=== PATIENT | female | born 1980 | race American Indian/Alaskan Native ===

== ENCOUNTER 2019-11-13 08:23 | Observation (INO) | payer OTHER ==
[2019-11-13] MEDS ORDERED: ASPIRIN 325 MG TAB PO ONE (08:33)
[2019-11-13] MEDS ORDERED: ONDANSETRON 4 MG ODT TAB ONE (08:39)
[2019-11-13] MEDS ORDERED: FAMOTIDINE 20 MG/2 ML INJ IV ONE (09:27)
[2019-11-13] MEDS ORDERED: ONDANSETRON 4 MG/2 ML INJ IV ONE (09:27)
[2019-11-13] MEDS ORDERED: fentaNYL 100 MCG/2 ML INJ IV ONE ×4 (09:27→19:38)
[2019-11-13] MEDS ORDERED: NITROGLYCERIN 2% OINT 1 GM TP ONE (09:27)
--- NOTE | 2019-11-13 09:32 | Emergency Department Report ---
HPI - General Chief Complaint: Chest Pain Time Seen by Provider: 11/13/19 09:22 - HPI HPI: Room 7 The patient is a 39-year-old female present with a chief complaint of chest pain. The patient states she developed substernal chest pain at 03: 00 this mo rning described as aching in nature. Patient states the pain is been constant and associated with nausea/vomiting, shortness of breath and diaphoresis. The patient states her last stress test occurred 2 years ago and was normal. The patient states she is never had a cardiac catheterization. Patient gives her pain a score of 10/10 ED Past Medical Hx - Past Medical History Previous Medical History?: No - Surgical History Past Surgical History?: No - Family History Family history: no significant - Social History Smoking Status: Never Smoker Substance Use Type: None (Denies illicit drug use), Alcohol (Occasional) ED Review of Systems ROS: Stated complaint: CHEST PAIN Other details as noted in HPI Constitutional: diaphoresis Respiratory: shortness of breath Cardiovascular: chest pain Gastrointestinal: nausea, vomiting Physical Exam - Physical Exam Vital Signs: Vital Signs 11/13/19 08:25 Temperature 98.3 F Pulse Rate 67 Respiratory 20 Rate Blood Pressure 140/117 O2 Sat by Pulse 100 Oximetry Physical Exam: GENERAL: The patient is well-developed well-nourished female sitting on stretcher appearing to be in moderate discomfort. [] HEENT: Normocephalic. Atraumatic. Extraocular motions are intact. Patient has moist mucous membranes. NECK: Supple. Trachea midline CHEST/LUNGS: Clear to auscultation. There is no respiratory distress noted. HEART/CARDIOVASCULAR: Regular. There is no tachycardia. There is no gallop rub or murmur. 2+ radial pulses bilaterally ABDOMEN: Abdomen is soft, nontender. Patient has normal bowel sounds. There is no abdominal distention. SKIN: There is no rash. There is no edema. There is no diaphoresis. NEURO: The patient is awake, alert, and oriented. The patient is cooperative. The patient has normal speech MUSCULOSKELETAL: There is no evidence of acute injury. ED Course Vital Signs 11/13/19 08:25 Temperature 98.3 F Pulse Rate 67 Respiratory 20 Rate Blood Pressure 140/117 O2 Sat by Pulse 100 Oximetry - Reevaluation(s) Reevaluation #1: 11/13/19 11:12 Patient feeling improved ED Medical Decision Making - Lab Data Result diagrams: 11/13/19 08:59 11/13/19 08:59 Laboratory Tests 11/13/19 11/13/19 11/13/19 08:59 08:59 08:59 WBC 7.2 RBC 4.64 Hgb 11.9 Hct 37.2 MCV 80 MCH 26 L MCHC 32 RDW 17.6 H Plt Count 373 Lymph % (Auto) 26.7 [place] % (Auto) 3.1 Eos % (Auto) 0.2 Baso % (Auto) 1.1 Lymph # 1.9 [place] # 0.2 Eos # 0.0 Baso # 0.1 Seg Neutrophils % 68.9 Seg Neutrophils # 5.0 Sodium 138 Potassium 3.9 Chloride 103.1 Carbon Dioxide 20 L Anion Gap 19 BUN 8 Creatinine 0.8 Estimated GFR > 60 BUN/Creatinine Ratio 10 Glucose 145 H Calcium 9.7 Troponin T < 0.010 HCG, Qual Negative - EKG Data -: EKG Interpreted by Me EKG shows normal: sinus rhythm Rate: normal (62 bpm) - EKG Data When compared to previous EKG there are: previous EKG unavailable Interpretation: nonspecific ST-T wave yvon (T wave inversions in leads V2, V3) - Radiology Data Radiology results: report reviewed (Chest x-ray), image reviewed (Chest x-ray) interpreted by me: Chest x-ray-no focal infiltrates, no pneumothorax Findings [facility] [address] [place] [address] XRay Report Signed Patient: ISAEL HERNANDEZ MR#: [id number] : 1980 Acct:[id number] Age/Sex: 39 / F ADM Date: 11/13/19 Loc: ED Attending Dr: Ordering Physician: IRAIS HAYS MD Date of Service: 11/13/19 Procedure(s): XR chest 1V ap Accession Number(s): [id number] cc: IRAIS HAYS MD Fluoro Time In Minutes: CHEST 1 VIEW INDICATION: Chest Pain. COMPARISON: None FINDINGS: Support devices: None. Heart: Within normal limits. Lungs/Pleura: No acute air space or interstitial disease. Additional findings: None. IMPRESSION: Normal AP chest Signer Name: Ángel Babin Jr, MD Signed: 11/13/2019 10:42 AM Workstation Name: [id number] Transcribed By: TTR Dictated By: ÁNGEL BABIN JR, MD Electronically Authenticated By: ÁNGEL BABIN JR, MD Signed Date/Time: 11/13/19 104 DD/ 1041 TD/TT: - Differential Diagnosis ACS, pericarditis, GERD Critical care attestation.: If time is entered above; I have spent that time in minutes in the direct care of this critically ill patient, excluding procedure time. ED Disposition Clinical Impression: Chest pain Disposition: OP ADMIT IP TO THIS HOSP Is pt being admited?: Yes Does the pt Need Aspirin: Yes Condition: Fair Instructions: Chest Pain (ED) Referrals: PRIMARY CARE,MD [Primary Care Provider] - 3-5 Days Time of Disposition: 11:11 (Hospitalist paged) MICAH score - Micah Score Age > 65: (0) No Aspirin use within the Past 7 Days: (0) No 3 or more CAD Risk Factors: (0) No 2 or more Angina events in past 24 hrs: (0) No Known CAD with more than 50% Stenosis: (0) No Elevated Cardiac Markers: (0) No ST Deviation Greater than 0.5mm: (0) No MICAH Score: 0
[2019-11-13] MEDS ORDERED: MORPHINE 4 MG/1 ML INJ IV ONE ×2 (09:52→09:53)
[2019-11-13 09:54] LABS: Basophils # (Auto) 0.1 K/mm3 (0.0-0.1); Basophils % (Auto) 1.1 % (0.0-1.8); Eosinophils % (Auto) 0.2 % (0.0-4.3); Hematocrit 37.2 % (30.3-42.9); Hemoglobin 11.9 gm/dl (10.1-14.3); Lymphocytes # (Auto) 1.9 K/mm3 (1.2-5.4); Lymphocytes % (Auto) 26.7 % (13.4-35.0); Mean Corpuscular HGB Conc 32 % (30-34); Mean Corpuscular Volume 80 fl (79-97); Monocytes # (Auto) 0.2 K/mm3 (0.0-0.8); Monocytes % (Auto) 3.1 % (0.0-7.3); Platelet Count 373 K/mm3 (140-440); Red Blood Count 4.64 M/mm3 (3.65-5.03); Red Cell Distribution Width 17.6 % (13.2-15.2)
[2019-11-13 10:15] LABS: BUN/Creatinine Ratio 10; Blood Urea Nitrogen 8 mg/dL (7-17); Calcium 9.7 mg/dL (8.4-10.2); Hemolysis Index 10
--- NOTE | 2019-11-13 10:46 | XRay Report ---
CHEST 1 VIEW INDICATION: Chest Pain. COMPARISON: None FINDINGS: Support devices: None. Heart: Within normal limits. Lungs/Pleura: No acute air space or interstitial disease. Additional findings: None. IMPRESSION: Normal AP chest Signer Name: Ángel Milan Jr, MD Signed: 11/13/2019 10:42 AM Workstation Name: [id number]
[2019-11-13 11:16] LABS: INR 1.16 (0.87-1.13)
[2019-11-13 11:17] LABS: Creatine Kinase MB 1.5 ng/mL (0.0-4.0)
[2019-11-13] MEDS ORDERED: fentaNYL 100 MCG/2 ML INJ ONE ×3 (12:50→19:46)
[2019-11-13] MEDS ORDERED: ACETAMINOPHEN 325 MG TAB PO PRN (13:17)
[2019-11-13] MEDS ORDERED: ONDANSETRON 4 MG/2 ML INJ IV PRN (13:17)
--- NOTE | 2019-11-13 13:17 | History and Physical Report ---
History of Present Illness Date of examination: 11/13/19 Date of admission: 11/13/19 11:42 Chief complaint: cp History of present illness: The patient is a 39-year-old female present with a chief complaint of chest pain. The patient states she developed substernal chest pain at 03: 00 this morning described as aching in nature. Patient states the pain is been constant and associated with nausea/vomiting, shortness of breath and diaphoresis. The patient states her last stress test occurred 2 years ago and was normal. The patient states she is never had a cardiac catheterization. Patient gives her pain a score of 10/10 Past History Past Medical History: No medical history Past Surgical History: No surgical history Social history: no significant social history Family history: no significant family history Medications and Allergies Allergies Allergy/AdvReac Type Severity Reaction Status Date / Time No Known Allergies Allergy Unverified 11/13/19 08:25 Review of Systems All systems: negative Exam - Constitutional Vitals: Temp Pulse Resp BP Pulse Ox 98.3 F 70 19 137/80 96 11/13/19 08:25 11/13/19 13:00 11/13/19 13:00 11/13/19 13:00 11/13/19 13:00 General appearance: Present: no acute distress, well-nourished - EENT Eyes: Present: PERRL ENT: hearing intact, clear oral mucosa - Neck Neck: Present: supple, normal ROM - Respiratory Respiratory effort: normal Respiratory: bilateral: CTA - Cardiovascular Heart Sounds: Present: S1 & S2. Absent: rub, click - Extremities Extremities: pulses symmetrical, No edema Peripheral Pulses: within normal limits - Abdominal General gastrointestinal: Present: soft, non-tender, non-distended, normal bowel sounds Female genitourinary: Present: normal - Integumentary Integumentary: Present: clear, warm, dry - Musculoskeletal Musculoskeletal: gait normal, strength equal bilaterally - Psychiatric Psychiatric: appropriate mood/affect, intact judgment & insight - Neurologic Neurologic: CNII-XII intact, moves all extremities HEART Score - HEART Score Troponin: Troponin T < 0.010 ng/mL (0.00-0.029) 11/13/19 10:30 Results - Labs CBC & Chem 7: 11/13/19 08:59 11/13/19 08:59 Labs: Laboratory Last Values WBC 7.2 K/mm3 (4.5-11.0) 11/13/19 08:59 RBC 4.64 M/mm3 (3.65-5.03) 11/13/19 08:59 Hgb 11.9 gm/dl (10.1-14.3) 11/13/19 08:59 Hct 37.2 % (30.3-42.9) 11/13/19 08:59 MCV 80 fl (79-97) 11/13/19 08:59 MCH 26 pg (28-32) L 11/13/19 08:59 MCHC 32 % (30-34) 11/13/19 08:59 RDW 17.6 % (13.2-15.2) H 11/13/19 08:59 Plt Count 373 K/mm3 (140-440) 11/13/19 08:59 Lymph % (Auto) 26.7 % (13.4-35.0) 11/13/19 08:59 [place] % (Auto) 3.1 % (0.0-7.3) 11/13/19 08:59 Eos % (Auto) 0.2 % (0.0-4.3) 11/13/19 08:59 Baso % (Auto) 1.1 % (0.0-1.8) 11/13/19 08:59 Lymph # 1.9 K/mm3 (1.2-5.4) 11/13/19 08:59 [place] # 0.2 K/mm3 (0.0-0.8) 11/13/19 08:59 Eos # 0.0 K/mm3 (0.0-0.4) 11/13/19 08:59 Baso # 0.1 K/mm3 (0.0-0.1) 11/13/19 08:59 Seg Neutrophils % 68.9 % (40.0-70.0) 11/13/19 08:59 Seg Neutrophils # 5.0 K/mm3 (1.8-7.7) 11/13/19 08:59 PT 15.1 Sec. (12.2-14.9) H 11/13/19 10:30 INR 1.16 (0.87-1.13) H 11/13/19 10:30 Sodium 138 mmol/L (137-145) 11/13/19 08:59 Potassium 3.9 mmol/L (3.6-5.0) 11/13/19 08:59 Chloride 103.1 mmol/L (98-107) 11/13/19 08:59 Carbon Dioxide 20 mmol/L (22-30) L 11/13/19 08:59 Anion Gap 19 mmol/L 11/13/19 08:59 BUN 8 mg/dL (7-17) 11/13/19 08:59 Creatinine 0.8 mg/dL (0.6-1.2) 11/13/19 08:59 Estimated GFR > 60 ml/min 11/13/19 08:59 BUN/Creatinine Ratio 10 % 11/13/19 08:59 Glucose 145 mg/dL (65-100) H 11/13/19 08:59 Calcium 9.7 mg/dL (8.4-10.2) 11/13/19 08:59 Total Creatine Kinase 187 units/L (30-135) H 11/13/19 10:30 CK-MB (CK-2) 1.5 ng/mL (0.0-4.0) 11/13/19 10:30 CK-MB (CK-2) Rel Index 0.8 (0-4) 11/13/19 10:30 Troponin T < 0.010 ng/mL (0.00-0.029) 11/13/19 10:30 HCG, Qual Negative (Negative) 11/13/19 08:59 Lou/IV: IV Catheter Type [Left INT / Saline Lock Antecubital] Assessment and Plan Assessment and plan: Chest pain. Patient will be placed on a chest pain pathway and monitor serial cardiac isoenzymes, EKGs and telemetry. Cardiology consultation.
--- NOTE | 2019-11-13 14:12 | Consultation ---
History of Present Illness Consult date: 11/13/19 Requesting physician: RADHA NATION Consult reason: chest pain History of present illness: The patient is a 39-year-old female with a past medical history of reported ? WPW and GERD. 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 She presented with c/o chest pain which began today at 3AM. The pain awoke her from sleep. She describes the pain as a constant midsternal aching and epigastric burning which is associated with n/v. The pt initially thought she was experiencing indigestion. She took some medications for indigestion and the chest pain did not improve and thus she decided to seek medical attention. She denies any SOB, palpitations, diaphoresis, dizziness or syncope. 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 She underwent stress testing at that time which was negative to her knowledge. On evaluation, she states her chest pain and epigastric pain has improved since receiving morphine. Past History Past Medical History: GERD Past Surgical History: No surgical history Social history: no significant social history Family history: no significant family history Medications and Allergies Allergies Allergy/AdvReac Type Severity Reaction Status Date / Time No Known Allergies Allergy Unverified 11/13/19 08:25 Active Meds: Active Medications Acetaminophen (Tylenol) 650 mg PO Q4H PRN PRN Reason: Pain MILD(1-3)/Fever >100.5/BECKER Ondansetron HCl (Zofran) 4 mg IV Q8H PRN PRN Reason: Nausea And Vomiting Sodium Chloride (Sodium Chloride Flush Syringe 10 Ml) 10 ml IV BID LATA Sodium Chloride (Sodium Chloride Flush Syringe 10 Ml) 10 ml IV PRN PRN PRN Reason: LINE FLUSH Sodium Chloride (Sodium Chloride Flush Syringe 10 Ml) 10 ml IV PRN PRN PRN Reason: LINE FLUSH Review of Systems Constitutional: no weight loss, no weight gain, no fever, no chills, no sweats Ears, nose, mouth and throat: no ear pain, no nose pain, no sinus pressure, no sinus pain Cardiovascular: chest pain, no orthopnea, no palpitations, no rapid/irregular heart beat, no edema, no syncope, no lightheadedness, no shortness of breath, no dyspnea on exertion, no high blood pressure, no leg edema Respiratory: no cough, no shortness of breath, no dyspnea on exertion, no congestion, no wheezing, no pain on inspiration Gastrointestinal: abdominal pain (epigastric), nausea, vomiting, no diarrhea, no constipation, no change in bowel habits, no hematemesis, no coffee ground emesis Genitourinary Female: no pelvic pain, no flank pain, no dysuria, no urinary frequency, no urgency Musculoskeletal: no neck stiffness, no neck pain, no shooting arm pain, no arm numbness/tingling, no low back pain, no shooting leg pain Integumentary: no rash, no pruritis, no redness, no sores, no wounds Neurological: no head injury, no paralysis, no weakness, no parathesias, no numbness, no tingling, no seizures, no syncope Psychiatric: no anxiety Endocrine: no cold intolerance, no heat intolerance Hematologic/Lymphatic: no easy bruising, no easy bleeding Allergic/Immunologic: no urticaria Physical Examination Vital Signs Temp Pulse Resp BP Pulse Ox 98.3 F 67 20 140/117 100 11/13/19 08:25 11/13/19 08:25 11/13/19 08:25 11/13/19 08:25 11/13/19 08:25 General appearance: no acute distress HEENT: Positive: PERRL, Normocephaly, Mucus Membranes Moist Neck: Positive: neck supple, trachea midline Cardiac: Positive: Reg Rate and Rhythm, S1/S2 Lungs: Positive: Decreased Breath Sounds Neuro: Positive: Grossly Intact Abdomen: Negative: Tender Skin: Negative: Rash Musculoskeletal: No Pain Extremities: Absent: edema Results 11/13/19 14:43 11/13/19 14:43 Cardiac Enzymes 11/13/19 Range/Units 10:30 CK-MB (CK-2) 1.5 (0.0-4.0) ng/mL Coagulation 11/13/19 Range/Units 10:30 PT 15.1 H (12.2-14.9) Sec. INR 1.16 H (0.87-1.13) CBC 11/13/19 Range/Units 08:59 WBC 7.2 (4.5-11.0) K/mm3 RBC 4.64 (3.65-5.03) M/mm3 Hgb 11.9 (10.1-14.3) gm/dl Hct 37.2 (30.3-42.9) % Plt Count 373 (140-440) K/mm3 Lymph # 1.9 (1.2-5.4) K/mm3 [place] # 0.2 (0.0-0.8) K/mm3 Eos # 0.0 (0.0-0.4) K/mm3 Baso # 0.1 (0.0-0.1) K/mm3 Comprehensive Metabolic Panel 11/13/19 Range/Units 08:59 Sodium 138 (137-145) mmol/L Potassium 3.9 (3.6-5.0) mmol/L Chloride 103.1 (98-107) mmol/L Carbon Dioxide 20 L (22-30) mmol/L BUN 8 (7-17) mg/dL Creatinine 0.8 (0.6-1.2) mg/dL Glucose 145 H (65-100) mg/dL Calcium 9.7 (8.4-10.2) mg/dL - Imaging and Cardiology Echo: pending EKG: report reviewed, image reviewed EKG interpretations - Telemetry EKG Rhythm: Sinus Rhythm - EKG Sinus rhythms and dysrhythmias: sinus rhythm Repolarization changes or abnormalities: nonspecific abnormality, ST segment, and/or T wave Assessment and Plan Pt with reported h/o ? WPW. ECG here shows NSR with nonspecific findings. AMI r/o. Chest pain currently improved. Pt with HEART score of 3. Await echo and plan for lexiscan MPI stress test in AM. NPO after MN. The patient has been seen in conjunction with Dr. Mckeon who agrees with the assessment and plan of care. - Patient Problems (1) Chest pain Current Visit: Yes Status: Acute (2) Epigastric pain Current Visit: Yes Status: Acute (3) Nausea and vomiting Current Visit: Yes Status: Acute (4) GERD (gastroesophageal reflux disease) Current Visit: Yes Status: Chronic (5) Obesity Current Visit: Yes Status: Chronic
[2019-11-13 15:23] LABS: BUN/Creatinine Ratio 9; Blood Urea Nitrogen 7 mg/dL (7-17); Calcium 9.2 mg/dL (8.4-10.2); Hemolysis Index 8
[2019-11-13 15:34] LABS: Hematocrit 32.3 % (30.3-42.9); Mean Corpuscular HGB Conc 34 % (30-34); Mean Corpuscular Volume 80 fl (79-97); Platelet Count 338 K/mm3 (140-440); Red Blood Count 4.03 M/mm3 (3.65-5.03); Red Cell Distribution Width 18.3 % (13.2-15.2)
[2019-11-13] MEDS ORDERED: PANTOPRAZOLE 40 MG INJ IV ONE (16:00)
[2019-11-13] MEDS: PANTOPRAZOLE 40 MG INJ IV SCH (16:00)
[2019-11-14 06:26] LABS: Basophils # (Auto) 0.1 K/mm3 (0.0-0.1); Basophils % (Auto) 0.7 % (0.0-1.8); Eosinophils # (Auto) 0.2 K/mm3 (0.0-0.4); Eosinophils % (Auto) 1.9 % (0.0-4.3); Hematocrit 32.9 % (30.3-42.9); Lymphocytes # (Auto) 3.7 K/mm3 (1.2-5.4); Lymphocytes % (Auto) 41.5 % (13.4-35.0); Mean Corpuscular HGB Conc 33 % (30-34); Mean Corpuscular Volume 80 fl (79-97); Monocytes # (Auto) 0.5 K/mm3 (0.0-0.8); Monocytes % (Auto) 5.7 % (0.0-7.3); Platelet Count 337 K/mm3 (140-440); Red Blood Count 4.14 M/mm3 (3.65-5.03); Red Cell Distribution Width 18.5 % (13.2-15.2)
[2019-11-14 06:50] LABS: BUN/Creatinine Ratio 10; Blood Urea Nitrogen 8 mg/dL (7-17); Calcium 8.9 mg/dL (8.4-10.2); Hemolysis Index 8
[2019-11-14] MEDS ORDERED: MORPHINE 2 MG/1 ML INJ IV ONE (07:00)
[2019-11-14] MEDS ORDERED: REGADENOSON 0.4 MG/5 ML INJ IV ONE ×2 (08:02→08:05)
--- NOTE | 2019-11-14 08:29 | Discharge Summary ---
Providers - Providers Date of Admission: 11/13/19 11:42 Date of discharge: 11/14/19 Attending physician: RADHA NATION 11/13/19 Consult to Cardiac Rehabilitation [CONS] Routine Reason For Exam: Phase I 11/13/19 13:17 Consult to Cardiology [CONS] Routine Consulting Provider: KACY DENNEY Reason For Exam: cp Primary care physician: [employer] Hospitalization Reason for admission: cp Condition: Fair Hospital course: The patient is a 39-year-old female with a past medical history of reported ? 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 The pain awoke her from sleep. She described the pain as a constant midsternal aching and epigastric burning which was associated with n/v. The pt initially thought she was experiencing indigestion. She took some medications for indigestion and the chest pain did not improve and thus she decided to seek medical attention. 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 She underwent stress testing at that time which was negative to her knowledge. Cardiology saw the patient in consultation. ECG revealed NSR and cardiac isoenzymes were negative. Patient underwent echocardiogram and stress test. Stress test was negative and echocardiogram revealed global left ventricular systolic function normal with EF of 55 to 60% and diastolic dysfunction. No other acute findings. Etiology of chest pain likely secondary to GERD. Patient reported history of gallstones. Therefore, right upper quadr ant ultrasound and LFTs were obtained which were found to be Disposition: DC-01 TO HOME OR SELFCARE Time spent for discharge: 32 - Discharge Diagnoses (1) Chest pain Status: Acute (2) GERD (gastroesophageal reflux disease) Status: Chronic (3) Obesity Status: Chronic Core Measure Documentation - Palliative Care Palliative Care/ Comfort Measures: Not Applicable - Core Measures Any of the following diagnoses?: none Exam - Constitutional Vitals: Temp Pulse Resp BP Pulse Ox 98.4 F 77 18 143/84 100 11/14/19 06:07 11/14/19 06:08 11/14/19 03:51 11/14/19 06:11 11/14/19 06:08 General appearance: Present: no acute distress, well-nourished - EENT Eyes: Present: PERRL ENT: hearing intact, clear oral mucosa - Neck Neck: Present: supple, normal ROM - Respiratory Respiratory effort: normal Respiratory: bilateral: CTA - Cardiovascular Heart Sounds: Present: S1 & S2. Absent: rub, click - Extremities Extremities: pulses symmetrical, No edema Peripheral Pulses: within normal limits - Abdominal General gastrointestinal: Present: soft, non-tender, non-distended, normal bowel sounds Female genitourinary: Present: normal - Integumentary Integumentary: Present: clear, warm, dry - Musculoskeletal Musculoskeletal: gait normal, strength equal bilaterally - Psychiatric Psychiatric: appropriate mood/affect, intact judgment & insight - Neurologic Neurologic: CNII-XII intact, moves all extremities Plan Activity: advance as tolerated Weight Bearing Status: Weight Bear as Tolerated Diet: regular Follow up with: PRIMARY CAREMD [Primary Care Provider] - 3-5 Days KACY DENNEY MD [Staff Physician] - 7 Days
--- NOTE | 2019-11-14 10:06 | Progress Note ---
Assessment and Plan Echo pending. Lexiscan MPI stress test 11/14/2019 - negative for ischemia. Chest pain is likely GI in nature, suspect gallstones. No cardiac contraindications to surgical intervention if warranted. Pt seen in conjunction with Dr. Mckeon, who agrees with the assessment and plan of care. - Patient Problems (1) Atypical chest pain Current Visit: Yes Status: Acute (2) Epigastric pain Current Visit: Yes Status: Acute (3) Nausea and vomiting Current Visit: Yes Status: Acute (4) Gallstones Current Visit: Yes Status: Suspected (5) GERD (gastroesophageal reflux disease) Current Visit: Yes Status: Chronic Subjective Date of service: 11/14/19 Principal diagnosis: Chest Pain Interval history: Pt seen in stress lab this AM. C/o abdominal pain. No current cardiac complaints. Tele reviewed - NSR 80s w/no acute events noted. Objective Last Vital Signs Temp 98.4 F 11/14/19 06:07 Pulse 77 11/14/19 06:08 Resp 18 11/14/19 03:51 BP 121/73 11/14/19 09:13 Pulse Ox 100 11/14/19 06:08 - Physical Examination General: No Apparent Distress HEENT: Positive: EOMI, Normocephaly, Mucus Membranes Moist Neck: Positive: neck supple, trachea midline. Negative: JVD/HJR Cardiac: Positive: Reg Rate and Rhythm, S1/S2 Lungs: Positive: clear to auscultation (bilaterally) Neuro: Positive: Grossly Intact Abdomen: Positive: Soft, Active Bowel Sounds, Tender Skin: Negative: Rash, Wound Musculoskeletal: No Pain, Normal Range of Motion Extremities: Present: upper extr. pulses, lower extr. pulses. Absent: edema - Labs and Meds Cardiac Enzymes 11/13/19 Range/Units 10:30 CK-MB (CK-2) 1.5 (0.0-4.0) ng/mL Coagulation 11/13/19 Range/Units 10:30 PT 15.1 H (12.2-14.9) Sec. INR 1.16 H (0.87-1.13) CBC 11/13/19 11/14/19 Range/Units 14:43 05:10 WBC 11.2 H 8.8 (4.5-11.0) K/mm3 RBC 4.03 4.14 (3.65-5.03) M/mm3 Hgb 11.0 11.0 (10.1-14.3) gm/dl Hct 32.3 32.9 (30.3-42.9) % Plt Count 338 337 (140-440) K/mm3 Lymph # Scanning Coordinator 3.7 [place] # Scanning Coordinator 0.5 Eos # Scanning Coordinator 0.2 Baso # Scanning Coordinator 0.1 Comprehensive Metabolic Panel 11/13/19 11/13/19 11/14/19 Range/Units 08:59 14:43 05:10 Sodium 138 138 140 (137-145) mmol/L Potassium 3.9 3.7 3.5 L (3.6-5.0) mmol/L Chloride 103.1 103.1 104.4 (98-107) mmol/L Carbon Dioxide 20 L 22 22 (22-30) mmol/L BUN 8 7 8 (7-17) mg/dL Creatinine 0.8 0.8 0.8 (0.6-1.2) mg/dL Glucose 145 H 122 H 157 H (65-100) mg/dL Calcium 9.7 9.2 8.9 (8.4-10.2) mg/dL - Imaging and Cardiology EKG: report reviewed, image reviewed Echo: pending - Telemetry EKG Rhythm: Sinus Rhythm - EKG Sinus rhythms and dysrhythmias: sinus rhythm Repolarization changes or abnormalities: nonspecific abnormality, ST segment, and/or T wave
--- NOTE | 2019-11-14 10:13 | Treadmill Report ---
CARDIAC NUCLEAR PERFUSION STUDY STUDY DONE BY: Dr. Mckeon REASON FOR STUDY: Chest pain. IMAGING PROTOCOL: The patient received 10 mCi of Technetium 99m Tetrofosmin for resting image and 28 mCi of Technetium 99m Tetrofosmin for stress imaging. The imaging for the whole procedure was completed 30-90 minutes following the initial injection of Technetium 99m Tetrofosmin. The SPECT imaging in the 180 degree arc was performed in the right anterior oblique projection. Computerized reconstruction of the images was performed for analysis. IMAGING RESULTS: Normal cavity size from stress to rest. Normal distribution of radionuclide in the anterior, inferior, septal, and apical regions. Gated SPECT, EF greater than 65% with no wall motion abnormality. The patient infused Lexiscan with no EKG changes. SUMMARY: 1. Negative Lexiscan EKG. 2. Normal rest and stress myocardial perfusion scan. No significant stress ischemia. No wall motion abnormality. Gated SPECT, EF greater than 65%. JOB# [id number] TYRON/ALEISHA
[2019-11-14] MEDS: PANTOPRAZOLE 40 MG INJ IV SCH (10:14)
[2019-11-14 11:09] LABS: Alanine Aminotransferase 93 units/L (7-56)
[2019-11-14 11:10] LABS: Bilirubin,Direct < 0.2 mg/dL (0-0.2)
--- NOTE | 2019-11-14 15:30 | Ultrasound Report ---
ULTRASOUND ABDOMEN, LIMITED (RIGHT UPPER QUADRANT) INDICATION: epigastric pain. COMPARISON: None available. FINDINGS: Pancreas: Obscured by bowel gas. Liver: Normal. Gallbladder: There is a gallstone near the neck. Bile ducts: Normal. Common Bile Duct measures 6 mm. Free fluid: None. Additional Findings: None. IMPRESSION: 1. Cholelithiasis. There is no gallbladder wall edema or pericholecystic fluid. Common duct is at the upper limits of normal measuring 6 mm in diameter. Signer Name: Joseph Baum MD Signed: 11/14/2019 3:26 PM Workstation Name: [id number]
[2019-11-14 16:16] VITALS: BP 138/72
== END 2019-11-14 17:29 | disposition home or self-care (01) ==
LOC: ED 08:23 → 4A 11:42
PROVIDERS: ADMIT Hospitalist; ATTEND Hospitalist
DX: R07.2 Precordial pain (principal); K21.9 Gastro-esophageal reflux disease without esophagitis; E66.9 Obesity, unspecified; R11.2 Nausea with vomiting, unspecified; K80.80 Other cholelithiasis without obstruction; Z68.36 Body mass index [BMI] 36.0-36.9, adult
CPT/HCPCS: 36415; 71045; 76705; 78452; 80048; 80076; 82550; 82553; 84484; 84703; 85025; 85610; 93005; 93017; 93306; 96374; 96375; 96376; 99285; A9502; C9113; G0378; J2270; J2405; J2785; J3010; Q0162

== ENCOUNTER 2019-12-29 11:09 | Emergency (ER) | payer OTHER ==
[2019-12-29 11:16] VITALS: BP 106/64
[2019-12-29] MEDS ORDERED: MORPHINE 4 MG/1 ML INJ IV ONE ×3 (11:50→15:06)
[2019-12-29] MEDS ORDERED: ONDANSETRON 4 MG/2 ML INJ IV ONE ×2 (11:50→13:34)
--- NOTE | 2019-12-29 11:54 | Emergency Department Report ---
ED General Adult HPI - General Chief complaint: Abdominal Pain Stated complaint: ABD PAIN Time Seen by Provider: 12/29/19 11:37 Source: patient Mode of arrival: Ambulatory Limitations: No Limitations - History of Present Illness Initial comments: Patient presents to the emergency department chief complaint of right upper quadrant abdominal pain that started this morning after eating a cheeseburger with zimmer yesterday evening. Per the patient's she has an issue with her gallbladder and followed up with the surgeon after being seen in the em ergency department and was not able to obtain an appointment due to that particular surgeon not taking her insurance. Patient denies chest pain, shortness breath, or headache. -: Sudden Location: abdomen Severity scale (0 -10): 7 Quality: sharp Consistency: constant Improves with: none Worsens with: none Associated Symptoms: denies other symptoms Treatments Prior to Arrival: none - Related Data Previous Rx's Medication Instructions Recorded Last Taken Type Pantoprazole [Protonix] 40 mg PO QDAY #30 tablet 11/14/19 Unknown Rx HYDROcodone/APAP 10-325 [[place] 1 each PO Q6HR PRN #24 tablet 12/29/19 Unknown Rx 10/325] Ondansetron [Zofran Odt] 4 mg PO Q4HR PRN #20 tab.rapdis 12/29/19 Unknown Rx Allergies Allergy/AdvReac Type Severity Reaction Status Date / Time No Known Allergies Allergy Unverified 11/13/19 08:25 ED Review of Systems ROS: Stated complaint: ABD PAIN Other details as noted in HPI Comment: All other systems reviewed and negative Constitutional: denies: chills, fever Eyes: denies: eye pain, eye discharge, vision change ENT: denies: ear pain, throat pain Respiratory: denies: cough, shortness of breath, wheezing Cardiovascular: denies: chest pain, palpitations Endocrine: no symptoms reported Gastrointestinal: abdominal pain. denies: nausea, diarrhea Genitourinary: denies: urgency, dysuria, discharge Musculoskeletal: denies: back pain, joint swelling, arthralgia Skin: denies: rash, lesions Neurological: denies: headache, weakness, paresthesias Psychiatric: denies: anxiety, depression Hematological/Lymphatic: denies: easy bleeding, easy bruising ED Past Medical Hx - Past Medical History Previous Medical History?: Yes Hx GERD: Yes - Surgical History Past Surgical History?: No - Social History Smoking Status: Never Smoker - Medications Home Medications: Home Medications Medication Instructions Recorded Confirmed Last Taken Type Pantoprazole [Protonix] 40 mg PO QDAY #30 tablet 11/14/19 Unknown Rx HYDROcodone/APAP 10-325 [[place] 1 each PO Q6HR PRN #24 tablet 12/29/19 Unknown Rx 10/325] Ondansetron [Zofran Odt] 4 mg PO Q4HR PRN #20 tab.rapdis 12/29/19 Unknown Rx ED Physical Exam - General Limitations: No Limitations General appearance: alert, in no apparent distress - Head Head exam: Present: atraumatic, normocephalic - Eye Eye exam: Present: normal appearance, PERRL, EOMI - ENT ENT exam: Present: mucous membranes moist - Neck Neck exam: Present: normal inspection - Respiratory Respiratory exam: Present: normal lung sounds bilaterally. Absent: respiratory distress - Cardiovascular Cardiovascular Exam: Present: regular rate, normal rhythm. Absent: systolic murmur, diastolic murmur, rubs, gallop - GI/Abdominal GI/Abdominal exam: Present: soft, tenderness (RUQ TTP), normal bowel sounds. Absent: distended - Extremities Exam Extremities exam: Present: normal inspection - Back Exam Back exam: Present: normal inspection - Neurological Exam Neurological exam: Present: alert, oriented X3 - Psychiatric Psychiatric exam: Present: normal affect, normal mood - Skin Skin exam: Present: warm, dry, intact, normal color. Absent: rash ED Course Vital Signs 12/29/19 12/29/19 12/29/19 11:12 12:00 12:52 Temperature 98.5 F Pulse Rate 89 Respiratory 18 22 20 Rate Blood Pressure 106/64 [Right] O2 Sat by Pulse 100 Oximetry 12/29/19 13:44 Temperature Pulse Rate Respiratory 18 Rate Blood Pressure [Right] O2 Sat by Pulse Oximetry ED Medical Decision Making - Lab Data Result diagrams: 12/29/19 12:09 12/29/19 12:09 Lab Results 12/29/19 12/29/19 12/29/19 Range/Units 12:09 12:09 12:09 WBC 8.3 (4.5-11.0) K/mm3 RBC 4.39 (3.65-5.03) M/mm3 Hgb 12.1 (10.1-14.3) gm/dl Hct 36.8 (30.3-42.9) % MCV 84 (79-97) fl MCH 28 (28-32) pg MCHC 33 (30-34) % RDW 19.7 H (13.2-15.2) % Plt Count 353 (140-440) K/mm3 Lymph % (Auto) 19.1 (13.4-35.0) % [place] % (Auto) 2.5 (0.0-7.3) % Eos % (Auto) 0.0 (0.0-4.3) % Baso % (Auto) 0.9 (0.0-1.8) % Lymph # (Auto) 1.6 (1.2-5.4) K/mm3 [place] # (Auto) 0.2 (0.0-0.8) K/mm3 Eos # (Auto) 0.0 (0.0-0.4) K/mm3 Baso # (Auto) 0.1 (0.0-0.1) K/mm3 Seg Neutrophils % 77.5 H (40.0-70.0) % Seg Neutrophils # 6.4 (1.8-7.7) K/mm3 PT 14.5 (12.2-14.9) Sec. INR 1.11 (0.87-1.13) APTT 30.7 (24.2-36.6) Sec. Sodium 143 (137-145) mmol/L Potassium 4.2 (3.6-5.0) mmol/L Chloride 102.4 (98-107) mmol/L Carbon Dioxide 23 (22-30) mmol/L Anion Gap 22 mmol/L BUN 7 (7-17) mg/dL Creatinine 0.7 (0.6-1.2) mg/dL Estimated GFR > 60 ml/min BUN/Creatinine Ratio 10 % Glucose 158 H (65-100) mg/dL Calcium 10.2 (8.4-10.2) mg/dL Total Bilirubin 0.30 (0.1-1.2) mg/dL AST 81 H (5-40) units/L ALT 132 H (7-56) units/L Alkaline Phosphatase 126 (35-129) units/L Total Protein 8.6 H (6.3-8.2) g/dL Albumin 4.8 (3.9-5) g/dL Albumin/Globulin Ratio 1.3 % Lipase 18 (13-60) units/L - Radiology Data Radiology results: report reviewed Critical care attestation.: If time is entered above; I have spent that time in minutes in the direct care of this critically ill patient, excluding procedure time. ED Disposition Clinical Impression: Cholelithiases Disposition: - TO HOME OR SELFCARE Is pt being admited?: No Does the pt Need Aspirin: No Condition: Stable Instructions: Biliary Colic (ED) Additional Instructions: return if worse Referrals: PRIMARY MD JESSICA [Primary Care Provider] - 3-5 Days SERENA SERRATO MD [Staff Physician] - 3-5 Days Time of Disposition: 14:45
[2019-12-29 12:46] LABS: Basophils # (Auto) 0.1 K/mm3 (0.0-0.1); Basophils % (Auto) 0.9 % (0.0-1.8); Hematocrit 36.8 % (30.3-42.9); Hemoglobin 12.1 gm/dl (10.1-14.3); Lymphocytes # (Auto) 1.6 K/mm3 (1.2-5.4); Lymphocytes % (Auto) 19.1 % (13.4-35.0); Mean Corpuscular HGB Conc 33 % (30-34); Mean Corpuscular Volume 84 fl (79-97); Monocytes # (Auto) 0.2 K/mm3 (0.0-0.8); Monocytes % (Auto) 2.5 % (0.0-7.3); Platelet Count 353 K/mm3 (140-440); Red Blood Count 4.39 M/mm3 (3.65-5.03); Red Cell Distribution Width 19.7 % (13.2-15.2)
[2019-12-29 12:54] LABS: INR 1.11 (0.87-1.13)
[2019-12-29 12:55] LABS: Partial Thromboplastin Time 30.7 Sec. (24.2-36.6)
--- NOTE | 2019-12-29 13:02 | Ultrasound Report ---
US abdomen limited INDICATION / CLINICAL INFORMATION: ruq ab pain. COMPARISON: 11/14/2019 FINDINGS: Multiple stones and sludge are seen in the gallbladder. The gallbladder wall is not thickened. Common bile duct is prominent at 8 mm. Visualized portions of the liver, pancreas, right kidney and aorta a re normal. IMPRESSION: Stones and sludge in the gallbladder without gallbladder wall thickening. Signer Name: Subhash Davis MD FACDavid Signed: 12/29/2019 12:56 PM Workstation Name: [id number]
[2019-12-29 13:08] LABS: Alanine Aminotransferase 132 units/L (7-56); Albumin 4.8 g/dL (3.9-5); BUN/Creatinine Ratio 10; Blood Urea Nitrogen 7 mg/dL (7-17); Calcium 10.2 mg/dL (8.4-10.2); Hemolysis Index 0
[2019-12-29] MEDS ORDERED: oxyCODONE /ACETAMINOPHEN 5-325MG TAB PO ONE (13:34)
== END 2019-12-29 15:30 | disposition home or self-care (01) ==
LOC: ED 11:09
DX: K80.80 Other cholelithiasis without obstruction (principal); K21.9 Gastro-esophageal reflux disease without esophagitis
CPT/HCPCS: 36415; 76705; 80053; 83690; 85025; 85610; 85730; 96374; 96375; 96376; 99284; J2270; J2405